=== PATIENT | female | born 1970 | race Caucasian/White ===

== ENCOUNTER 2018-02-22 19:31 | Emergency (ER) | payer OTHER ==
[~2018-02-22] VITALS: Ht 160 cm; Wt 81.7 kg
[~2018-02-22 19:31] MED LIST: ABILIFY 5 MG TAB5 M1; ALEVE220 MG PO; ALL DAY ALLERGY10 M3 PO; AMOXICILLIN 50500 MG PO; ASPIRIN EC81 M1; ATIVAN0.5 MG; BUP; BUSPAR 5 MG TABL5 M1 PO; CARAFATE 1 GM TA1 G1 PO; CIPROFLOXACIN500 M1 PO; COLACE100 MG; CYMBALTA60 MG; CYMBALTA60 MG PO; DIAZEPAM 5 MG5 MG; DIFLUCAN150 MG; FISH OIL 1,001000 M2 PO; FLAGYL500 MG PO; FLOMAX0.4 MG PO; FLONASE 0.05%50 MCG INH; FLUOXETINE HCL40 MG PO; GLUCOPHAGE500 MG; GLUCOPHAGE500 MG PO; GLYCOLAX POWDER17 GM; HYDROCODON-ACE1 EAC5 PO; HYDROCODON-ACE1 EAC7 PO; HYDROCODON-ACE1 EAC8 PO; HYDROCODONE PO; HYDROCODONE-AP1 EAC6 PO; IBUPROFEN 200200 M1; IBUPROFEN 800800 MG PO; LAMICTAL100 MG PO; LAMOTRIGINE200 MG PO; LEVSIN0.125 MG SUBLING; LORAZEPAM 0.50.5 MG; MEDROLDOSEPACK PO; METAMUCIL197.2 GM; METFORMIN HCL500 MG PO; MOBIC15 MG; MOBIC15 MG PO; NEURONTIN 300300 M1; NEURONTIN 300300 M1 PO; NEURONTIN600 MG PO; NORCO 10-325 T1 EACH; NORCO 5-325 TA1 EACH PO; OMEPRAZOLE40 MG; PERCOCET; PERCOCET 5-3251 EACH PO; PERCOCET PO; PHENAZOPYRIDIN200 M2 PO; PHENERGAN 25 MG25 M1 PO; PROPRANOLOL 1010 MG PO; PROTONIX40 M1 PO; PROZAC20 MG PO; SINGULAIR 10 MG10 M1 PO; TIZANIDINE HCL4 MG PO; TOPAMAX100 MG; XANAX1 MG PO; ZANAFLEX2 M1 PO; ZANAFLEX4 M1; ZANAFLEX4 MG PO; ZANAFLEX6 MG PO; ZANTAC 150MG T150 MG PO; ZOFRAN ODT4 MG PO; [UNRECOGNIZED DRUG - OTHER]
[2018-02-22] MEDS ORDERED: METFORMIN HCL500 MG (20:00)
[2018-02-22] MEDS ORDERED: PROZAC20 MG (20:00)
[2018-02-22] MEDS ORDERED: MOBIC15 MG (20:00)
[2018-02-22 22:25] VITALS: BP 106/63
== END 2018-02-22 22:27 | disposition home or self-care (01) ==
LOC: M.ERS 19:31
DX: S06.0X0A Concussion without loss of consciousness, initial encounter (principal); R07.81 Pleurodynia; G40.909 Epilepsy, unspecified, not intractable, without status epilepticus; F31.9 Bipolar disorder, unspecified; Z90.710 Acquired absence of both cervix and uterus; E11.9 Type 2 diabetes mellitus without complications; Z87.891 Personal history of nicotine dependence; W19.XXXA Unspecified fall, initial encounter; Y93.68 Activity, volleyball (beach) (court); Y92.89 Other specified places as the place of occurrence of the external cause; Y99.8 Other external cause status

== ENCOUNTER → 2018-04-07 | Outpatient (CLI) | payer OTHER ==
[~2018-04-07] MED LIST changes: +METFORMIN HCL500 MG; +PROZAC20 MG
== END ==
LOC: M.RAD 13:15
DX: M54.6 Pain in thoracic spine (principal); M54.5 Low back pain; M54.2 Cervicalgia; E11.9 Type 2 diabetes mellitus without complications

== ENCOUNTER → 2018-10-04 | Outpatient (CLI) | payer OTHER | LOC: M.ULTRA 15:20 | DX: E04.1 Nontoxic single thyroid nodule (principal); R22.32 Localized swelling, mass and lump, left upper limb ==

== ENCOUNTER 2018-12-01 13:05 | Emergency (ER) | payer OTHER ==
[~2018-12-01] VITALS: Ht 157.5 cm; Wt 77.1 kg
[2018-12-01 13:38] LABS: HEMATOCRIT 40.3 % (37.0-47.0); HEMOGLOBIN 13.6 gm/dL (12.0-15.0); MCH 29.8 pg (26.0-34.0); MCHC 33.7 g/dL (28.0-37.0); MCV 88.3 fL (80.0-100.0); MPV 7.1 fl. (7.2-11.1); NUCLEATED RBCS 0 /100WBC; PLATELET COUNT* 310 thou/uL (150-400); RBC 4.56 mil/uL (4.20-5.00); RDW-CV 13.1 % (10.5-14.5); WBC 8.4 thou/uL (4.0-11.0)
[2018-12-01 13:43] LABS: ANION GAP 13 mmol/L (7-16); BUN 11 mg/dL (7-18); CALCIUM 8.5 mg/dL (8.5-10.1); CHLORIDE 108 mmol/L (98-107); CO2 23 mmol/L (21-32); CREATININE 0.5 mg/dL (0.6-1.3); GLUCOSE 112 mg/dL (70-99); POTASSIUM 3.7 mmol/L (3.5-5.1); SODIUM 144 mmol/L (136-145)
[2018-12-01 13:55] LABS: ALBUMIN 3.9 g/dL (3.4-5.0); ALKALINE PHOSPHATASE 58 U/L (46-116); SGOT 17 U/L (15-37); SGPT 25 U/L (30-65); TOTAL BILIRUBIN 0.4 mg/dL (<0.1-1.0); TOTAL PROTEIN 7.1 g/dL (6.4-8.2); TROPONIN-I LEVEL <0.06 ng/mL (<0.06)
[2018-12-01 14:08] LABS: ABSOLUTE BASOPHILS 0.1 thou/uL (0.0-0.2); ABSOLUTE LYMPHOCYTES 0.4 thou/uL (0.8-5.3); ABSOLUTE MONOCYTES 0.1 thou/uL (0.0-1.2); ABSOLUTE NEUTROPHILS 7.8 thou/uL (1.6-8.1); PLATELET ESTIMATE ADEQUATE
[2018-12-01 15:14] VITALS: BP 125/75
--- NOTE | 2018-12-01 16:25 | EKG ---
[place] [address] ELECTROCARDIOGRAM REPORT Name: MEG ALVARADO Room: [facility]#: [id number] Admission: 12/01/18 Attend Phys: Discharge: 12/01/18 Date of : 74 Report #: [id number] THIS REPORT FOR: //name// [facility] ED Test Date: 2018-12-01 Test Time: 13:09:32 Pat Name: MEG ALVARADO Department: Room: Gender: F Machine Cleaner: Estrada MCGREGOR : 1970 Requested By: Lazaro Pedroza Order Number: [id number] MD: Gomez Murrieta Measurements Intervals [place] Rate: 85 P: 69 [place]: 146 QRS: 39 QRSD: 95 T: 32 QT: 402 QTc: 478 Interpretive Statements Sinus rhythm Borderline T abnormalities, anterior leads Baseline wander in lead(s) II,aVR Compared to ECG 06/09/2015 00:02:04 No significant changes Electronically Signed On 12-01-2018 16:24:55 CDT by Gomez Murrieta [email or web address] <ELECTRONICALLY SIGNED> By: Gomez Murrieta MD, [facility] 12/01/18 1624 1309 1309 Gomez Murrieta MD, [facility] /EPI
== END 2018-12-01 15:15 | disposition home or self-care (01) ==
LOC: M.ERS 13:05
PROVIDERS: Emergency Medicine Emergency Medical Services
DX: M79.672 Pain in left foot (principal); F31.9 Bipolar disorder, unspecified; G25.81 Restless legs syndrome; G43.909 Migraine, unspecified, not intractable, without status migrainosus; E11.9 Type 2 diabetes mellitus without complications; Z90.710 Acquired absence of both cervix and uterus; Z87.442 Personal history of urinary calculi; Z87.891 Personal history of nicotine dependence; Z98.890 Other specified postprocedural states

== ENCOUNTER 2020-03-16 21:47 | Emergency (ER) | payer OTHER ==
[~2020-03-16] VITALS: Ht 154.9 cm; Wt 68.0 kg
[2020-03-16] MEDS ORDERED: LORCET 5-325 M1 EACH PO (22:00)
[2020-03-16] MEDS ORDERED: EMGALITY120 MG/1 M SUBQ (22:01)
[2020-03-16] MEDS ORDERED: IBUPROFEN 600600 M1 PO (22:01)
[2020-03-16] MEDS ORDERED: LATUDA20 MG PO (22:02)
[2020-03-16] MEDS ORDERED: SUPER THERAVIT1 EACH PO (22:02)
[2020-03-16] MEDS ORDERED: MECLIZINE HCL25 M1 PO (22:02)
[2020-03-16] MEDS ORDERED: PRAVACHOL40 MG PO (22:03)
[2020-03-16] MEDS ORDERED: ONZETRA XSAIL11 MG NARES (22:03)
[2020-03-16] MEDS ORDERED: OMEPRAZOLE20 M2 PO (22:03)
[2020-03-16] MEDS ORDERED: GABAPENTIN600 M1 PO (22:04)
[2020-03-16 22:28] LABS: URINE BILIRUBIN NEGATIVE (Negative); URINE BLOOD 1+ (Negative); URINE CLARITY CLEAR; URINE COLOR YELLOW; URINE GLUCOSE-RANDOM NEGATIVE (Negative); URINE KETONES NEGATIVE (Negative); URINE LEUKOCYTES-REFLEX NEGATIVE (Negative); URINE NITRITE-REFLEX NEGATIVE (Negative); URINE PROTEIN NEGATIVE (Negative); URINE UROBILINOGEN 0.2 E.U./dl (0.2-1.0)
[2020-03-16 22:40] LABS: SQUAMOUS 4-10 Moderate /LPF (0-3)
[2020-03-16 22:41] LABS: BACTERIA-REFLEX None Seen /HPF (None Seen); CASTS None Seen /LPF (None Seen); CRYSTALS None Seen /LPF (None Seen); URINE RBC 0-2 Rare /HPF (0-2); URINE WBC-REFLEX 0-5 Rare /HPF (0-5)
[2020-03-16 22:44] LABS: HEMATOCRIT 36.2 % (37.0-47.0); HEMOGLOBIN 12.4 gm/dL (12.0-15.0); MCH 30.9 pg (26.0-34.0); MCHC 34.2 g/dL (28.0-37.0); MCV 90.4 fL (80.0-100.0); NUCLEATED RBCS 0 /100WBC; PLATELET COUNT* 316 thou/uL (150-400); RDW-CV 13.5 % (10.5-14.5); WBC 11.9 thou/uL (4.0-11.0)
[2020-03-16 22:54] LABS: CALCIUM 8.5 mg/dL (8.5-10.1); CREATININE 0.8 mg/dL (0.6-1.3); POTASSIUM 4.3 mmol/L (3.5-5.1)
[2020-03-16 22:59] LABS: ALBUMIN 3.5 g/dL (3.4-5.0); TOTAL BILIRUBIN 0.2 mg/dL (<0.1-1.0); TOTAL PROTEIN 6.6 g/dL (6.4-8.2)
[2020-03-16 23:32] LABS: ABSOLUTE LYMPHOCYTES 0.6 thou/uL (0.8-5.3); ABSOLUTE MONOCYTES 0.8 thou/uL (0.0-1.2); ABSOLUTE NEUTROPHILS 10.5 thou/uL (1.6-8.1); PLATELET ESTIMATE ADEQUATE
[2020-03-17 00:29] VITALS: BP 110/60
== END 2020-03-17 00:30 | disposition home or self-care (01) ==
LOC: M.ERS 21:47
PROVIDERS: Emergency Medicine
DX: G89.18 Other acute postprocedural pain (principal); R10.84 Generalized abdominal pain; G25.81 Restless legs syndrome; G40.909 Epilepsy, unspecified, not intractable, without status epilepticus; E11.9 Type 2 diabetes mellitus without complications; G43.909 Migraine, unspecified, not intractable, without status migrainosus; Z87.891 Personal history of nicotine dependence; Z79.899 Other long term (current) drug therapy; Z98.51 Tubal ligation status; Z87.442 Personal history of urinary calculi; Z90.49 Acquired absence of other specified parts of digestive tract